=== PATIENT | female | born 1965 | race African-American/Black ===

== ENCOUNTER 2020-08-26 14:18 | Emergency (ER) | payer OTHER ==
[~2020-08-26] VITALS: Ht 165.1 cm; Wt 70.3 kg
[2020-08-26 14:54] LABS: URINE BILIRUBIN NEGATIVE (Negative); URINE BLOOD TRACE (Negative); URINE CLARITY CLEAR; URINE COLOR YELLOW; URINE GLUCOSE-RANDOM* NEGATIVE (Negative); URINE KETONES NEGATIVE (Negative); URINE LEUKOCYTES-REFLEX NEGATIVE (Negative); URINE NITRITE-REFLEX NEGATIVE (Negative); URINE PROTEIN (DIPSTICK) NEGATIVE (Negative); URINE UROBILINOGEN 0.2 E.U./dl (0.2-1.0)
[2020-08-26 14:54] LABS: ABSOLUTE NEUTROPHILS 9.2 thou/uL (1.4-8.2); BASOPHILS 0.4 % (0.0-2.0); EOSINOPHILS 0.7 % (0.0-3.0); HEMATOCRIT 41.6 % (37.0-47.0); HEMOGLOBIN 13.9 gm/dL (12.0-15.0); LYMPHOCYTES 12.7 % (24.0-44.0); MCH 30.1 pg (26.0-34.0); MCHC 33.5 g/dL (28.0-37.0); MONOCYTES 4.7 % (1.0-8.0); PLATELET COUNT 215 thou/uL (150-400); POLYS 81.5 % (36.0-66.0); RBC 4.62 mil/uL (4.20-5.00); RDW 13.3 % (10.5-14.5); WBC 11.3 thou/uL (4.0-11.0)
[2020-08-26 15:01] LABS: CALCIUM 10.1 mg/dL (8.5-10.1); CREATININE 0.8 mg/dL (0.6-1.0); POTASSIUM 3.6 mmol/L (3.5-5.1)
[2020-08-26 15:07] LABS: ALBUMIN 4.5 g/dL (3.4-5.0); TOTAL BILIRUBIN 0.3 mg/dL (0.2-1.0); TOTAL PROTEIN 8.8 g/dL (6.4-8.2)
[2020-08-26 16:00] VITALS: BP 164/68
[2020-08-26] MEDS ORDERED: METFORMIN PO (23:49)
== END 2020-08-26 16:46 | disposition left against medical advice (07) ==
LOC: ER 14:18
PROVIDERS: Emergency Medicine
DX: R10.30 Lower abdominal pain, unspecified (principal); E11.9 Type 2 diabetes mellitus without complications

== ENCOUNTER 2020-08-26 23:05 | Inpatient (IN) | payer OTHER ==
[~2020-08-26] VITALS: Ht 165.1 cm; Wt 71.2 kg
[2020-08-26 23:18] VITALS: BP 157/91
[2020-08-26] MEDS ORDERED: METFORMIN PO (23:49)
[2020-08-27] VITALS (9 sets, daily range): BP systolic 121–187; BP diastolic 62–94
[2020-08-27 00:46] LABS: CALCIUM 10.3 mg/dL (8.5-10.1); CREATININE 0.9 mg/dL (0.6-1.0); POTASSIUM 3.2 mmol/L (3.5-5.1)
[2020-08-27 00:52] LABS: ALBUMIN 4.7 g/dL (3.4-5.0); TOTAL BILIRUBIN 0.7 mg/dL (0.2-1.0); TOTAL PROTEIN 8.7 g/dL (6.4-8.2)
[2020-08-27 05:14] LABS: MAGNESIUM 1.7 mg/dL (1.8-2.4); TROPONIN-I <0.06 ng/mL (<0.06)
--- NOTE | 2020-08-27 14:34 | NUR ---
AAOX4. LOW LYTES NOTED, BEING REPLACED. C/O NAUSEA, TREATED, NO EMESIS NOTED. AMIODARONE DRIP, SR PER TELE. WILL CONTINUE TO FOLLOW CLOSELY.
--- NOTE | 2020-08-28 02:08 | NUR ---
ASSUMED PT CARE AT THE CHANGE OF SHIFT, PT IS AWAKE, ALERT AND ORIENTEDX4, SR 0N THE MONITOR, ASSESSMENTS CHARTED, DENIES ABDOMINAL PAIN, ABDOMEN SOFT, BOWEL SOUNDS ACTIVE, DENIES NAUSEA AND VOMITING, AMIODARONE INFUSING ORDERED, VSS, HAD A SHOWER, DENIES HAVING CONCERNS AT THIS TIME, PROGRESSING WELL TOWARDS POC
[2020-08-28 05:00] VITALS: BP 145/94
[2020-08-28 05:06] LABS: HEMATOCRIT 41.1 % (37.0-47.0); HEMOGLOBIN 13.5 gm/dL (12.0-15.0); MCH 30.1 pg (26.0-34.0); MCV 91.3 fL (80.0-100.0); RBC 4.5 mil/uL (4.20-5.00); RDW 13.5 % (10.5-14.5); WBC 9.4 thou/uL (4.0-11.0)
[2020-08-28 05:35] LABS: CALCIUM 9.4 mg/dL (8.5-10.1); CREATININE 0.7 mg/dL (0.6-1.0); MAGNESIUM 2.3 mg/dL (1.8-2.4)
[2020-08-28 05:36] LABS: GLYCOHEMOGLOBIN (HGB A1C) 5.9 % (4.8-5.6)
[2020-08-28 05:39] LABS: POTASSIUM 3.9 mmol/L (3.5-5.1)
[2020-08-28 08:00] VITALS: BP 147/87
[2020-08-28] MEDS ORDERED: LISINOPRIL20 MG PO (13:53)
[2020-08-28] MEDS ORDERED: PACERONE 200 M200 M1 PO (13:54)
[2020-08-28 14:24] VITALS: BP 145/87
--- NOTE | 2020-08-28 14:39 | NUR ---
ASSUMMED PT CARE AT APPROXIMATELY 0700. PT A&O X4. ASSESSMENT CHARTED. FALL PRECAUTIONS IN PLACE. PT DENIES HAVING CHEST PAIN. PT DENIES HAVING SOB. PT DENIES HAVING ACUTE PAIN. ADVANCED DIET. PT TOLERATED ADVANCED DIET. PT DISCHARGING HOME C SELF CARE. PT RECEIVED DISCHARGE EDUCATION. PT STATED UNDERSTANDING AND DENIED HAVING FURTHER QUESTIONS. VITAL SIGNS STABLE. BLOOD SUGARS STABLE. IV DC. TELE DC. PT COMFORTABLE. PT AMBULATES STEADY/ INDEPENDENT. PT RECEIVED MEDICAL ASSISTANCE OFF UNIT.
--- NOTE | 2020-08-29 07:29 | EKG ---
[facility] [place] [address] ELECTROCARDIOGRAM REPORT Name: KAZ VALDEZ Room #: 210-[facility] IN M.R.#: [id number] Admission: 08/27/20 Attend Phys: Emil Land MD Discharge: 08/28/20 Date of : 65 Report #: [id number] THIS REPORT FOR: cc: Floridalma Hillman MD, Ahmad MD Santiago,Ronald CANALES [facility] ~ THIS REPORT FOR: //name// [facility] ED Test Date: 2020-08-27 Test Time: 02:46:13 Pat Name: KAZ VALDEZ Department: Room: 210 Gender: F Chair Pad Maker: : 1965 Requested By: Pranay Layton Order Number: [id number] MD: Ronald Luna Measurements Intervals [place] Rate: 70 P: 55 [place]: 168 QRS: 32 QRSD: 80 T: 25 QT: 405 QTc: 437 Interpretive Statements Sinus rhythm Ventricular bigeminy Probable left atrial enlargement No previous ECG available for comparison Electronically Signed On 08-29-2020 7:29:41 COMEDIAN by Ronald Luna [email or web address] <ELECTRONICALLY SIGNED> By: Ronald Luna MD, FACC 08/29/20 0729 0246 [id number] Ronald Luna MD, [facility] /EPI
== END 2020-08-28 14:00 | disposition home or self-care (01) | DRG 389 ==
LOC: ER 23:05 → EROBS 08-27 02:12 → 2N 08-27 03:57
PROVIDERS: Emergency Medicine; Internal Medicine; Nurse Practitioner Family; ADMIT Hospitalist; ATTEND Hospitalist
DX: K56.609 Unspecified intestinal obstruction, unspecified as to partial versus complete obstruction (principal); I47.2 Ventricular tachycardia; E11.9 Type 2 diabetes mellitus without complications; D86.9 Sarcoidosis, unspecified; E87.6 Hypokalemia; I10 Essential (primary) hypertension; Z82.3 Family history of stroke; Z83.3 Family history of diabetes mellitus; Z79.84 Long term (current) use of oral hypoglycemic drugs
CPT/HCPCS: 10194